=== PATIENT | male | born 1985 | race Caucasian/White ===

== ENCOUNTER 2024-01-24 07:01 | Emergency (ER) | payer OTHER, SELFPAY ==
[2024-01-24 07:06] VITALS: BP 126/98
[2024-01-24 07:47] LABS: ALT (SGPT) 36 U/L (0-50); AST (SGOT) 27 U/L (17-59); Albumin 4.8 g/dl (3.5-5.0); Alkaline Phosphatase 68 U/L (38-126); Blood Urea Nitrogen 15 mg/dl (9-20); Calcium 10.1 mg/dl (8.4-10.2); Carbon Dioxide 29 mmol/L (22-30); Chloride 102 mmol/L (98-107); Glucose 105 mg/dl (70-99); Potassium 4.4 mmol/L (3.5-5.1); Sodium 142 mmol/L (135-145); Total Bilirubin 0.9 mg/dl (0.2-1.3); Total Protein 7.2 g/dl (6.3-8.2); eGFR > 60.00
[2024-01-24 09:35] VITALS: BP 125/92; BMI 30.1
[2024-01-24 09:51] LABS: % Basophils 0.7 % (0-2); % Eosinophils 1.4 % (0-6); % Immature Granulocytes 0.3 % (0-0.5); % Lymphocytes 11.9 % (20.5-51.1); % Monocytes 7.3 % (1.7-9.3); % Neutrophils 78.4 % (42.2-75.2); Absolute Basophils 0.1 10^3/uL (0-0.2); Absolute Eosinophils 0.1 10^3/uL (0-0.7); Absolute Lymphocytes 1.1 10^3/uL (1.2-3.4); Absolute Monocytes 0.7 10^3/uL (0.1-0.6); Absolute Neutrophils 7.1 10^3/uL (1.4-6.5); Hematocrit 46.6 % (39.0-52.0); Mean Corp Hgb Conc. 34.3 g/dL (33.0-37.0); Mean Corpuscular Hgb 30.4 pg (27.0-31.0); Mean Corpuscular Volume 88.6 fL (80.0-94.0); Mean Platelet Volume 9.5 fL (7.4-10.4); Nucleated Red Blood Cells % 0 % (-); Platelet Count 322 10^3/uL (130-400); Red Blood Cell Count 5.26 10^6/uL (4.70-6.10); Red Cell Dist. Width 13.7 % (11.5-14.5); White Blood Cell Count 9.1 10^3/uL (4.8-10.8)
--- NOTE | 2024-01-24 10:59 | ED.GENMED ---
History of Present Illness
General
Chief Complaint: Rectal Bleeding
Time Seen by Provider: 01/24/24 09:58
History of Present Illness
History of Present Illness:
Patient is a 38-year-old male with no reported chronic medical problems and no daily medications here today for evaluation of rectal bleeding that began this morning. Patient reports having a bowel movement which was reportedly normal until he
wiped when he noted blood along the toilet paper. He also noted a small amount of blood in the toilet. No pain with defecation. He has never had similar symptoms previously. He did feel his rectum and noted a small mass which he reports is new.
He denies prior history of hemorrhoids. No prior colonoscopy. No acute complaints otherwise. No fevers. No vomiting. No abdominal pain.
Review of Systems
Review of Systems
All Other Systems: ROS reviewed and negative except as documented in HPI and ROS
Phy Exam
Physical Exam
Physical Exam:
GENERAL: Alert , in no apparent distress
EYE: pupils equal and reactive
NECK: Supple, no significant adenopathy.
ENT: o/p clr, mmm.
CARDIAC: Regular rate and rhythm .
LUNGS: Clear breath sounds bilaterally, no acute respiratory distress, no wheezes/rales/rhonchi
ABDOMEN: Soft, without focal tenderness, no r/g, no cvat
RECTAL: External nontender mass approximately 1 cm in diameter along the rectal region at approximately 9:00, area is soft, nontender, and nonthrombosed suggestive of a hemorrhoid. There is a mild amount of dried blood along the perirectal region
without active bleeding.
NEUROLOGICAL: Alert and oriented, no focal neuro deficits
SKIN: Warm and dry, skin intact.
MUSCULOSKELETAL: No edema, well perfused.
PSYCH: Normal and appropriate interaction.
Course
Orders/Labs/Results
Orders:
Orders
01/24/24 07:14
Type+Screen Urgent
Comprehensive Metabolic Panel Urgent
01/24/24 09:34
ABO2 Urgent
BBK Wristband Number:
Associate notified that ABO2 has been ordered: [id number]
Date: 01/24/24
Time: 07:26
Microbiology Lab Manager ID: [id number]
Complete Blood Count/With Diff Stat
Abnormal Lab Results
01/24/24 01/24/24
07:14 09:34
Absolute Neuts (auto) 7.1 H 10^3/uL
(1.4-6.5)
Absolute Lymphs (auto) 1.1 L 10^3/uL
(1.2-3.4)
Absolute Monos (auto) 0.7 H 10^3/uL
(0.1-0.6)
Neutrophils % 78.4 H %
(42.2-75.2)
Lymphocytes % 11.9 L %
(20.5-51.1)
Glucose 105 H mg/dl
(70-99)
01/24/24 09:34
01/24/24 07:14
Vital Signs
Initial and Last Documented VS:
Initial Vital Signs
Temp Pulse Resp BP Pulse Ox
98.7 F 98 16 126/98 99
01/24/24 07:06 01/24/24 07:06 01/24/24 07:06 01/24/24 07:06 01/24/24 07:06
Last Documented Vital Signs
Temp Pulse Resp BP Pulse Ox
98.7 F 76 18 94/68 100
01/24/24 07:06 01/24/24 11:25 01/24/24 11:25 01/24/24 11:25 01/24/24 11:25
MDM/Problems Addressed
Differential Diagnosis Includes:
Patient is a 38-year-old male with no reported chronic medical problems and no daily medications here today for evaluation of rectal bleeding that began this morning. Overall, patient appears very well. Vital signs grossly within normal limits.
Physical examination described above. Rectal examination was performed which reveals an external rectal mass suggestive of a nonthrombosed hemorrhoid. No significant bleeding noted. Labs were obtained in triage which reveal a normal hemoglobin.
Stool is heme positive. Will treat patient for a nonthrombosed external hemorrhoid with hydrocortisone cream. Patient has a minimal amount of rectal bleeding without significant bleeding noted and his hemoglobin is normal and there is no evidence
of significant anemia. Patient suitable for outpatient follow-up with GI. Return precautions given for worsening symptoms. All questions answered. Stable for discharge
*Critical Care Note
Total Time (30-74mins, 75-104mins- exclusive of procedures): Not Applicable
ED Attending Note
-
Portions of this chart may have been created with voice recognition software.� Occasional wrong word or��sound alike� substitutions may have occurred due to the inherent limitations of voice recognition software.
Discharge Plan
Departure
Patient Disposition: Home (Routine Discharge)
Date of Disposition: 01/24/24
Time of Disposition: 11:14
Patient with high blood pressure during this ER visit?: No
Condition: Good
Covid-19: Not Applicable
Discharge Problem:
Painless rectal bleeding, Rectal mass
Instructions: Bloody Stools, Adult (DC)
Prescriptions:
New
hydrocortisone 2.5 % cream with perineal applicator
1 applic topical Q12H 7 Days Qty: 30 0RF
Rx Instructions:
Apply sparingly, up to twice daily for 1 week
Referrals:
Bucky Samson MD [Family Provider] - Follow up in 5-7 days
Jewel Sanchez MD [Active] - Follow up in 10 days
Activity Restrictions/Additional Instructions:
You were seen today for evaluation of rectal bleeding.
Your findings are consistent with an external hemorrhoid.
Begin using the rectal cream as directed.
Follow-up with the GI specialists as an outpatient within the next 10 days for close reevaluation.
Return for any new, worsening, or concerning symptoms.
Interventions
Interventions:
*Risk Screen - Suicide Last Done: 01/24/24 07:06
*General Assessment Last Done: 01/24/24 07:06
*Neglect/Abuse Screening Last Done: 01/24/24 07:06
*ED COVID-19 Vaccine History Last Done: 01/24/24 09:25
*Nursing Disposition Last Done: 01/24/24 11:27
XK-Sgolyw-Cgimxghbuz Assessment Last Done: 01/24/24 09:25
ED- Cardiac Assessment Last Done: 01/24/24 09:25
ED- Pulmonary Assessment Last Done: 01/24/24 09:25
Discharge Date and Time
Discharge Date/Time: 01/24/24 11:29
Print Language: GREENLANDIC
[2024-01-24 11:25] VITALS: BP 94/68
== END 2024-01-24 11:29 | disposition home or self-care (01) ==
LOC: EMR 07:01
PROVIDERS: Emergency Medicine; EMERGENCY PHYSICIAN Emergency Medicine; FAMILY PHYSICIAN Family Medicine
DX: K62.5 Hemorrhage of anus and rectum (principal); K62.9 Disease of anus and rectum, unspecified
CPT/HCPCS: 99283; 80053; 85025; 86850; 86900; 86901